=== PATIENT | female | born 1960 | race American Indian/Alaskan Native ===

== ENCOUNTER 2018-09-13 10:31 | Emergency (ER) | payer SELFPAY ==
[2018-09-13 10:34] VITALS: BMI 36.3
[2018-09-13] MEDS ORDERED: Sodium Chloride 0.9% 1,000 ML IV STA (11:32)
[2018-09-13 12:05] LABS: BASO % 0.4 % (0.0-2.0); EOS % 0.2 % (0.0-4.0); LYMPH # 2.9 K/uL (1.0-4.3); LYMPH % 37.7 % (20.0-40.0); MEAN CELL VOLUME 95.4 fl (81.0-99.0); MEAN CORPUSCULAR HEMOGLOBIN 31.2 pg (27.0-31.0); MEAN CORPUSCULAR HGB CONC 32.7 g/dL (33.0-37.0); MEAN PLATELET VOLUME 8.8 fl (7.2-11.7); MONO # 0.4 K/uL (0.0-0.8); MONO % 5.5 % (0.0-10.0); NEUT # 4.3 K/uL (1.8-7.0); NEUT % 56.2 % (50.0-75.0); NRBC % 0.1 % (0.0-0.0); RBC 4.16 Mil/uL (3.80-5.20); RED CELL DISTRIBUTION WIDTH 14.3 % (11.5-14.5); WHITE BLOOD COUNT 7.6 K/uL (4.8-10.8)
[2018-09-13 12:11] LABS: ALB/GLOB RATIO 1.2 (1.0-2.1); ALBUMIN 4.5 g/dL (3.5-5.0); ALT/SGPT 27 U/L (9-52); AST/SGOT 39 U/L (14-36); BLOOD UREA NITROGEN 14 mg/dl (7-17); GFR NON-AFRICAN AMERICAN > 60
--- NOTE | 2018-09-13 12:39 | ED PDOC ---
HPI: Seizure Time Seen by Provider: 09/13/18 10:53 Chief Complaint (Nursing): Seizure Chief Complaint (Provider): Seizure History Per: Patient, EMS Recent Seizure Activity Began: Just Before Arrival Number Of Seizures: One Quality Of Seizure: Generalized Additional Complaint(s): 58yo female with history of epilepsy, brought to ER by EMS for evaluation after she had a seizure episode while on the bus. Per triage note, patient stated her last seizure episode was 3-4 months ago, however patient informed the provider that the last episode was 1 month ago. Patient currently confused and is post- ictal; she thinks she had her episode while at home and called the ambulance herself. Patient also unable to recall the name of her PMD or neurologist. She takes fycompa for her seizure and states is compliant. She also thinks she bit her tongue but denies any urine or bowel incontinence. PAtient reports she feels weak, dizzy, is confused. No recent illness, known sick contacts or changes in neurological status. Past Medical History Reviewed: Historical Data, Nursing Documentation, Vital Signs Vital Signs: Last Vital Signs Temp 98.0 F 09/13/18 10:33 Pulse 89 09/13/18 10:57 Resp 23 09/13/18 10:57 BP 139/70 09/13/18 10:33 Pulse Ox 93 L 09/13/18 10:57 Primary Care Provider: Non [facility] Provider, - Medical History PMH: Seizures (epilepsy) Denies: Chronic Kidney Disease - Surgical History Surgical History: No Surg Hx - Family History Family History: States: No Known Family Hx - Immunization History Hx Tetanus Toxoid Vaccination: No Hx Influenza Vaccination: No Hx Pneumococcal Vaccination: No - Allergies Allergies/Adverse Reactions: Allergies Allergy/AdvReac Type Severity Reaction Status Date / Time No Known Allergies Allergy Verified 09/13/18 11:21 Review of Systems ROS Statement: Except As Marked, All Systems Reviewed And Found Negative ENT: Positive for: Other (tongue bite) Neurological: Positive for: Confusion, Seizures, Dizziness Physical Exam - Reviewed Nursing Documentation Reviewed: Yes Vital Signs Reviewed: Yes - Physical Exam Appears: Positive for: Non-toxic Head Exam: Positive for: ATRAUMATIC, NORMAL INSPECTION, NORMOCEPHALIC Skin: Positive for: Normal Color Eye Exam: Positive for: EOMI, PERRL ENT: Positive for: Other (left sided tongue swelling, no active bleeding) Neck: Positive for: Supple Cardiovascular/Chest: Positive for: Regular Rate, Rhythm. Negative for: Tac hycardia Respiratory: Positive for: Normal Breath Sounds. Negative for: Respiratory Distress Gastrointestinal/Abdominal: Positive for: Normal Exam, Soft Back: Positive for: Normal Inspection Extremity: Positive for: Normal ROM Neurological/Psych: Positive for: Awake, Alert, Oriented (x 2; patient reports incorrect date). Negative for: Lethargic, Listless, Motor/Sensory Deficits - Laboratory Results Result Diagrams: 09/13/18 11:56 09/13/18 11:56 Lab Results: Total Bilirubin 0.3 mg/dl (0.2-1.3) 09/13/18 11:56 AST 39 U/L (14-36) H 09/13/18 11:56 ALT 27 U/L (9-52) 09/13/18 11:56 Alkaline Phosphatase 88 U/L (38-126) 09/13/18 11:56 Total Protein 8.2 G/DL (6.3-8.2) 09/13/18 11:56 Albumin 4.5 g/dL (3.5-5.0) 09/13/18 11:56 Globulin 3.7 gm/dL (2.2-3.9) 09/13/18 11:56 Albumin/Globulin Ratio 1.2 (1.0-2.1) 09/13/18 11:56 - ECG O2 Sat by Pulse Oximetry: 93 (RA) Medical Decision Making Medical Decision Making: Seizure activity, self resolved and patient is now post-ictal No brain CT indicated at this time Basic labs, observation and reevaluation 1415 Pt no longer post ictal but states she is tired which is her baseline. States s he remembers being on the bus to go to a job interview in [facility]. Was recently started on 2 mg of Fycompa but is expecting to increase to 4mg. Pt will follow up with neurologist. 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 ScribeAttestation: Documented byAmrita Messer, acting as a scribe for Nathaly Alcantara MD. Provider ScribeAttestation: All medical record entries made by the Scribe were at my direction and personally dictated by me. I have reviewed the chart and agree that the record accurately reflects my personal performance of the history, physical exam, medical decision making, and the department course for this patient. I have also personally directed, reviewed, and agree with the discharge instructions and disposition. Disposition - Clinical Impression Clinical Impression: Seizure disorder, Epileptic seizure, generalized - Disposition Disposition: Routine/Home Disposition Time: 14:15 Condition: IMPROVED Instructions: Seizures, Adult (DC) Forms: [employer] ([place])
[2018-09-13 14:48] VITALS: BP 135/78; PULSE 89; RESP 22; TEMP 99.1; O2SAT 99
== END 2018-09-13 14:32 | disposition home or self-care (01) ==
LOC: H.ER 10:31
DX: G40.409 Other generalized epilepsy and epileptic syndromes, not intractable, without status epilepticus (principal)
CPT/HCPCS: 80053; 81025; 82948; 85025; 96374; 99285; J1885; J7030